=== PATIENT | female | born 1945 | race Caucasian/White ===

== ENCOUNTER 2023-10-22 18:20 | Emergency (ER) | payer MEDICARE, BC ==
[2023-10-22 18:44] LABS: BASOPHILS ABSOLUTE AUTO 0.05 10^3/uL (0.00-0.50); BASOPHILS PERCENT AUTO 0.4 % (0-1); EOSINOPHILS ABSOLUTE AUTO 0.37 10^3/uL (0.00-1.50); EOSINOPHILS PERCENT AUTO 2.8 % (0-6); HEMOGLOBIN 11.5 g/dL (12.0-16.0); IMMATURE GRAN ABSOLUTE AUTO 0.08 10^3/uL (0.00-0.49); IMMATURE GRAN PERCENT AUTO 0.6 % (0.0-4.9); LYMPHOCYTES ABSOLUTE AUTO 3.43 10^3/uL (0.60-5.00); LYMPHOCYTES PERCENT AUTO 26.2 % (24-44); MEAN CORPUSCULAR HEMOGLOBIN 28.3 pg (27.0-32.0); MEAN CORPUSCULAR HGB CONC 31.1 g/dL (32.0-36.0); MEAN CORPUSCULAR VOLUME 91.1 fL (83.0-97.0); MONOCYTES ABSOLUTE AUTO 1.29 10^3/uL (0.00-1.50); MONOCYTES PERCENT AUTO 9.9 % (0-10); NEUTROPHILS ABSOLUTE AUTO 7.86 x10^3/uL (1.80-8.00); NEUTROPHILS PERCENT AUTO 60.1 % (41-71); PLATELET COUNT,PLT 539 10^3/uL (150-400); RED BLOOD CELL COUNT 4.06 x10^6/uL (4.00-5.50); WHITE BLOOD CELL COUNT,WBC 13.1 10^3/uL (4.0-11.0)
[2023-10-22] MEDS: Sodium Chloride 0.9% 1,000 ML IV ONE (18:45)
[2023-10-22] MEDS: Etomidate 2 MG/ML 10 ML SDV IVPUSH ONE ×4 (18:48→20:03)
[2023-10-22] MEDS: Succinylcholine 200 MG/10 ML MDV IV ONE ×2 (18:48)
[2023-10-22] MEDS: Midazolam 1 MG/ML 2 ML SDV IVPUSH ONE ×5 (18:48→19:39)
[2023-10-22 18:57] LABS: ALANINE AMINOTRANSFERASE,ALT 20 U/L (12-78); ALBUMIN 2.9 g/dL (3.4-5.0); ALKALINE PHOSPHATASE 169 U/L (46-116); ASPARTATE AMNIOTRANSFERASE,AST 31 U/L (15-37); BILIRUBIN TOTAL 0.7 mg/dL (0.0-1.0); BLOOD UREA NITROGEN,BUN 19 mg/dL (7-18); C-REACTIVE PROTEIN 5.88 mg/dL (<=0.50); CALCIUM 8.7 mg/dL (8.4-10.1); CARBON DIOXIDE,CO2 33 mmol/L (21-32); CHLORIDE,CL 94 mEq/L (98-106); CREATININE 1.2 mg/dL (0.6-1.0); GLUCOSE RANDOM 157 mg/dL (75-99); POTASSIUM,K 3.8 mEq/L (3.5-5.0); PROTEIN TOTAL,TP 6.7 g/dL (6.4-8.2); SODIUM,NA 133 mEq/L (136-145)
[2023-10-22 18:58] LABS: ESTIMATED GFR 47 mL/min (>=60)
[2023-10-22] MEDS: Sodium Chloride 0.9% 1,000 ML ONE (19:10)
[2023-10-22] MEDS: Etomidate 2 MG/ML 10 ML SDV ONE (19:10)
[2023-10-22] MEDS: Midazolam 1 MG/ML 2 ML SDV ONE ×2 (19:13)
[2023-10-22] MEDS: Succinylcholine 200 MG/10 ML MDV ONE (19:19)
[2023-10-22] MEDS: Rocuronium 50 MG/5 ML Vial ONE (19:34)
[2023-10-22] MEDS: LORazepam 2 MG/ML SDV IVPUSH ONE ×2 (19:36→20:03)
[2023-10-22] MEDS: fentaNYL 100 MCG/2 ML SDV IV ONE ×2 (19:40→20:04)
[2023-10-22 19:43] VITALS: BP 161/79; PULSE 91
[2023-10-22 19:44] LABS: BASE EXCESS ARTERIAL 3.1 (-2.0-3.0); BICARBONATE,ARTERIAL 31.4 mm/L (22.0-26.0); O2 DELIVERY DEVICE VENTILATOR; O2 SATURATION ARTERIAL 86 % (95-98); PCO2 ARTERIAL 82 mm/Hg0 (35-45); PH,ARTERIAL 7.19 (7.35-7.45); PO2 ARTERIAL 65 mm/Hg (80-100)
[2023-10-22] MEDS: Piperacillin/Tazobactam 4.5 GM in Sodium Chloride 0.9% 100 ML IV ONE (19:46)
[2023-10-22] MEDS: VANCOmycin 1 GM/200 ML 1 GM in Premix Bag 1 BAG IV STA (19:50)
== END 2023-10-22 20:20 ==
LOC: CC.ED 18:20
DX: T17.920A Food in respiratory tract, part unspecified causing asphyxiation, initial encounter (principal); J18.9 Pneumonia, unspecified organism; J96.01 Acute respiratory failure with hypoxia; J96.02 Acute respiratory failure with hypercapnia; J90 Pleural effusion, not elsewhere classified; E87.29 Other acidosis; I11.0 Hypertensive heart disease with heart failure; I50.9 Heart failure, unspecified; I25.2 Old myocardial infarction; E78.00 Pure hypercholesterolemia, unspecified; E10.40 Type 1 diabetes mellitus with diabetic neuropathy, unspecified; Z86.16 Personal history of COVID-19; Z79.899 Other long term (current) drug therapy; Z79.890 Hormone replacement therapy; Z88.0 Allergy status to penicillin; Z88.2 Allergy status to sulfonamides; Z88.6 Allergy status to analgesic agent; W44.F3XA Food entering into or through a natural orifice, initial encounter
CPT/HCPCS: 31500; 36415; 36600; 51702; 71045; 80053; 82803; 84484; 85025; 86140; 93005; 93010; 96361; 96365; 96368; 96375; 99284; 99291-25; 99292; J0330; J2060; J2250; J2543; J3010; J3372; J3490; J7030

== ENCOUNTER 2023-11-26 14:04 | Emergency (ER) | payer MEDICARE, BC ==
[2023-11-26 14:21] LABS: BASOPHILS ABSOLUTE AUTO 0.01 10^3/uL (0.00-0.50); BASOPHILS PERCENT AUTO 0.3 % (0-1); EOSINOPHILS ABSOLUTE AUTO 0.03 10^3/uL (0.00-1.50); EOSINOPHILS PERCENT AUTO 0.8 % (0-6); HEMATOCRIT 26.4 % (37.0-47.0); HEMOGLOBIN 7.8 g/dL (12.0-16.0); LYMPHOCYTES ABSOLUTE AUTO 0.63 10^3/uL (0.60-5.00); LYMPHOCYTES PERCENT AUTO 16.4 % (24-44); MEAN CORPUSCULAR HEMOGLOBIN 28.5 pg (27.0-32.0); MEAN CORPUSCULAR HGB CONC 29.5 g/dL (32.0-36.0); MEAN CORPUSCULAR VOLUME 96.4 fL (83.0-97.0); MONOCYTES ABSOLUTE AUTO 0.52 10^3/uL (0.00-1.50); MONOCYTES PERCENT AUTO 13.5 % (0-10); NEUTROPHILS ABSOLUTE AUTO 2.65 x10^3/uL (1.80-8.00); PLATELET COUNT,PLT 314 10^3/uL (150-400); RED BLOOD CELL COUNT 2.74 x10^6/uL (4.00-5.50); WHITE BLOOD CELL COUNT,WBC 3.8 10^3/uL (4.0-11.0)
[2023-11-26 14:41] LABS: ALBUMIN 2.6 g/dL (3.4-5.0); BILIRUBIN TOTAL 0.4 mg/dL (0.0-1.0); C-REACTIVE PROTEIN 13.68 mg/dL (<=0.50); CALCIUM 8.6 mg/dL (8.4-10.1); CREATININE 1.3 mg/dL (0.6-1.0); EST CRCL DRUG DOSING (CG) 28.66 mL/min; MAGNESIUM 1.5 mg/dL (1.8-2.4); PROTEIN TOTAL,TP 5.1 g/dL (6.4-8.2)
[2023-11-26] MEDS ORDERED: Sodium Chloride 0.9% 10 ML Syringe FLUSH PRN (14:41)
[2023-11-26 14:58] LABS: CORONAVIRUS COVID-19 NAA NEGATIVE (NEGATIVE); INFLUENZA A NAA NEGATIVE (NEGATIVE); INFLUENZA B NAA NEGATIVE (NEGATIVE); RESPIRATORY SYNCYTIAL VIR NAA NEGATIVE (NEGATIVE)
[2023-11-26] MEDS: Menthol/Zinc Oxide Ointment 113 GM Tube TOP PRN (15:24)
[2023-11-26] MEDS: Pantoprazole 40 MG Vial IVPUSH ONE (15:26)
[2023-11-26] MEDS: Pantoprazole 40 MG in Sodium Chloride 0.9% 100 ML IV SCH (15:27)
[2023-11-26] MEDS: Iopamidol 755 Mg/ML 100 ML Bottle IVPUSH ONE (15:28)
[2023-11-26 15:50] LABS: APPEARANCE,URINE CLOUDY (CLEAR); BILIRUBIN,URINE NEGATIVE (NEGATIVE); COLOR,URINE YELLOW (YELLOW); GLUCOSE,URINE NEGATIVE (NEGATIVE); KETONES,URINE NEGATIVE (NEGATIVE); LEUKOCYTE ESTERASE,URINE TRACE (NEGATIVE); NITRITE,URINE NEGATIVE (NEGATIVE); OCCULT BLOOD,URINE SMALL (NEGATIVE); PROTEIN,URINE NEGATIVE (NEGATIVE); UROBILINOGEN,URINE 0.2 EU/dL (0.2-1.0)
[2023-11-26 15:55] LABS: BACTERIA,URINE MODERATE /HPF (NOT SEEN); EPITHELIAL CELLS,URINE OCCASIONAL /HPF (NOT SEEN); MUCUS,URINE NOT SEEN /HPF (NOT SEEN); RBC,URINE 0-5 /HPF (0-5); WBC,URINE 20-30 /HPF (0-5)
[2023-11-26] MEDS: Bumetanide 2.5 MG/10 ML MDV IVPUSH ONE (15:56)
[2023-11-26] MEDS: Sodium Chloride 0.9% 1,000 ML IV SCH (15:59)
[2023-11-26 20:32] VITALS: BP 156/68; PULSE 82
== END 2023-11-26 20:55 ==
LOC: CC.ED 14:04
DX: J90 Pleural effusion, not elsewhere classified (principal); K92.1 Melena; D64.9 Anemia, unspecified; I13.0 Hypertensive heart and chronic kidney disease with heart failure and stage 1 through stage 4 chronic kidney disease, or unspecified chronic kidney disease; I50.9 Heart failure, unspecified; N18.9 Chronic kidney disease, unspecified; E78.00 Pure hypercholesterolemia, unspecified; I25.2 Old myocardial infarction; E10.22 Type 1 diabetes mellitus with diabetic chronic kidney disease; E10.40 Type 1 diabetes mellitus with diabetic neuropathy, unspecified; Z86.16 Personal history of COVID-19; Z79.899 Other long term (current) drug therapy; Z79.82 Long term (current) use of aspirin; Z79.01 Long term (current) use of anticoagulants; Z79.4 Long term (current) use of insulin; Z88.2 Allergy status to sulfonamides; Z88.5 Allergy status to narcotic agent; Z88.0 Allergy status to penicillin; Z88.6 Allergy status to analgesic agent
CPT/HCPCS: 0241U; 36415; 51702; 71045; 74177; 80053; 81001; 82272; 83735; 83880; 84484; 85025; 86140; 86850; 86900; 86901; 87086; 87088; 87186; 93005; 93010; 96365; 96366; 96375; 96376; 99284; 99285-25; A9270-GY; J2470; J3490; J7030; Q9967